=== PATIENT | male | born 1995 | race American Indian/Alaskan Native ===

== ENCOUNTER 2020-09-11 11:43 | Emergency (ER) | payer SELFPAY ==
--- NOTE | 2020-09-11 12:05 | Emergency Department Report ---
- General Chief Complaint: Extremity Injury, Upper Stated Complaint: RT ARM PAIN Time Seen by Provider: 09/11/20 11:54 Source: patient Mode of arrival: Ambulatory Limitations: No Limitations - Related Data Allergies Allergy/AdvReac Type Severity Reaction Status Date / Time No Known Allergies Allergy Unverified 09/11/20 11:48 ED Review of Systems ROS: Stated complaint: RT ARM PAIN Other details as noted in HPI ED Past Medical Hx - Past Medical History Hx Sickle Cell Disease: Yes Hx Seizures: Yes - Surgical History Past Surgical History?: No - Social History Smoking Status: Never Smoker Substance Use Type: None ED Physical Exam - General Limitations: No Limitations Critical care attestation.: If time is entered above; I have spent that time in minutes in the direct care of this critically ill patient, excluding procedure time. ED Disposition Condition: Stable
--- NOTE | 2020-09-11 12:07 | Emergency Department Report ---
Upper Extremity - HPI Chief Complaint: Extremity Injury, Upper Stated Complaint: RT ARM PAIN Time Seen by Provider: 09/11/20 11:54 Upper Extremity: Right Forearm Occurred When: 2 Days Mechanism: Fall (Reports falling down with groceries in his left hand and try to break his fall placing his left forearm down on the ground resulting in abrasion which was followed by pain and swelling and suspicion of internal derangement involving the floor also presents emerge department for further evaluation ) Severity: mild, moderate Symptoms: Yes Pain with Movement, Yes Limited Range of Movement, Yes Swelling, No Deformity ED Review of Systems ROS: Stated complaint: RT ARM PAIN Other details as noted in HPI Comment: All other systems reviewed and negative ED Past Medical Hx - Past Medical History Hx Sickle Cell Disease: Yes Hx Seizures: Yes - Surgical History Past Surgical History?: No - Social History Smoking Status: Never Smoker Substance Use Type: None - Medications Home Medications: Home Medications Medication Instructions Recorded Confirmed Last Taken Type Ketorolac [Toradol] 10 mg PO Q6H PRN #15 tablet 09/11/20 Unknown Rx Sulfamethoxazole/Trimethoprim 1 each PO BID #20 tablet 09/11/20 Unknown Rx [Bactrim Ds] cephALEXin [Keflex] 500 mg PO Q6HR #40 capsule 09/11/20 Unknown Rx Upper Extremity Exam - Exam General: Vital signs noted. No distress. Alert and acting appropriately. Head and Torso: No HEENT Abnormality, No Neck Tenderness, No Chest/Lungs Abnormality, No Abdominal Tenderness, No Back Tenderness Shoulder Exam: Yes Normal Range of Motion in Shoulder, No Shoulder Tenderness, No Clavicle Tenderness, No Shoulder Deformity, No AC Joint Tenderness Arm Exam: No Arm/Humerus Tenderness, No Arm Deformity Elbow: No Elbow Tenderness, No Normal Range of Motion in Elbow, No Elbow Deformity Forearm: Yes Forearm Tenderness (Tenderness to the left right forearm with palpation. Warmth is noticed there is cellulitis noted there is some evidence of healed abrasion superficially noted. Normal elbow and wrist are appreciated), No Forearm Deformity, No Pain with Pronation, No Pain with Supination Wrist: Yes Normal ROM in Wrist, No Wrist Tenderness, No Wrist Deformity, No Snuffbox Tenderness, No Pain with Axial Thumb Compression Hand: Yes Normal ROM in Digit(s), No Hand Tenderness, No Hand Deformity, No Digit Tenderness, No Digit(s) Deformity, No Tendon Dysfunction CMS Exam: Yes Broken Skin (In the healing stages, ), No Normal Distal Pulses, No Normal Capillary Refill, No Normal Distal Sensation Front/Back of Body, Lg (Color): 1 - Region of cellulitis ED Medical Decision Making - Radiology Data Radiology results: report reviewed [facility] [address] [place] [address] XRay Report Signed Patient: EROS BLACKMAN JR MR# : [id number] : 1995 Acct:[id number] Age/Sex: 25 / M ADM Date: 09/11/20 Loc: ED Attending Dr: Ordering Physician: JANETH SANTIAGO Date of Service: 09/11/20 Procedure(s): XR forearm RT Accession Number(s): [id number] cc: JANETH SANTIAGO Fluoro Time In Minutes: HISTORY:fall pain swelling COMPARISON: None. TECHNIQUE: AP lateral and obliques views were obtained FINDINGS: Bones: No fracture or dislocation. Joint spaces: Maintained. Soft tissues: No significant abnormality. Additional findings: None. IMPRESSION: 1. No significant abnormality. Signer Name: Arvind Riddle MD Signed: 09/11/2020 12:18 PM Workstation Name: [id number] Transcribed By: WG Dictated By: Arvind Riddle MD Electronically Authenticated By: Arvind Riddle MD Signed Date/Time: 09/11/201217 DD/ 16 TD/TT: - Medical Decision Making 25-year-old male status post traumatic injury to the right fall x-ray showed no fracture there is evidence of cellulitis due to what was likely initial broken skin to that region. I advised him the need to clean the wound with antibacterial soap and water and utilize some antibiotics and have the wound reevaluated in 3 to 4 days per his primary care provider. Critical care attestation.: If time is entered above; I have spent that time in minutes in the direct care of this critically ill patient, excluding procedure time. ED Disposition Clinical Impression: Right forearm cellulitis, Contusion of forearm, right Disposition: DC-01 TO HOME OR SELFCARE Condition: Stable Instructions: Cellulitis, Adult, Contusion, [id number], How to Use Cold Therapy, [id number] Prescriptions: Sulfamethoxazole/Trimethoprim [Bactrim Ds] 1 each PO BID #20 tablet cephALEXin [Keflex] 500 mg PO Q6HR #40 capsule Ketorolac [Toradol] 10 mg PO Q6H PRN #15 tablet PRN Reason: Pain Referrals: PATTI RECIO MD [Staff Physician] - 2-3 Days (Please follow-up for wound reevaluation/wound check)
--- NOTE | 2020-09-11 12:22 | XRay Report ---
HISTORY:fall pain swelling COMPARISON: None. TECHNIQUE: AP lateral and obliques views were obtained FINDINGS: Bones: No fracture or dislocation. Joint spaces: Maintained. Soft tissues: No significant abnormality. Additional findings: None. IMPRESSION: 1. No significant abnormality. Signer Name: Arvind Riddle MD Signed: 09/11/2020 12:18 PM Workstation Name: [facility] TranslationSH[id number]
== END 2020-09-11 14:04 | disposition home or self-care (01) ==
LOC: ED 11:43
DX: S50.11XA Contusion of right forearm, initial encounter (principal); L03.113 Cellulitis of right upper limb; Z86.69 Personal history of other diseases of the nervous system and sense organs; Z79.899 Other long term (current) drug therapy; X58.XXXA Exposure to other specified factors, initial encounter; Y93.89 Activity, other specified; Y92.89 Other specified places as the place of occurrence of the external cause; Y99.8 Other external cause status